=== PATIENT | female | born 1975 | race American Indian/Alaskan Native ===

== ENCOUNTER 2017-11-11 16:21 | Inpatient (IN) | payer OTHER ==
[2017-11-11] MEDS ORDERED: PITOCin/NS 20 UNIT/1000ML DRIP 20,000 MILLIUNITS/1,000 ML BAG IV ONE (16:23)
[2017-11-11] MEDS ORDERED: LACTATED RINGERS 1,000 ML ONE (16:26)
[2017-11-11] MEDS ORDERED: CYTOTEC ONE (16:32)
[2017-11-11] MEDS ORDERED: METHERGINE IM ONE (16:33)
--- NOTE | 2017-11-11 17:05 | Procedure Note ---
OB Delivery Note - Delivery Date of Delivery: 11/11/17 Surgeon: JIAN KENNEDY Estimated blood loss: 100cc - Vaginal Delivery presentation: vertex Delivery position: OA Intrapartum events: no care, gestational hypertension, precipitous labor- <3hr Delivery induction: none Delivery monitor: external FHT Route of delivery: Delivery placenta: adherent (delayed delivery of the placenta for over 1 hour. Ultrasound confirmed no morbidly adherent placenta) Delivery cord: 3 umbilical vessels Episiotomy: none Delivery laceration: none Anesthesia: none Delivery comments: Precipitous delivery of with unknown gestational age over intact perineum. Retained placenta encountered, ultrasound confirmed no morbidly adherent placenta. Placenta delivered spontaneously after 1 hour. - A at 1 minute: 8 at 5 minutes: 9 Infant Gender: Male (time of delivery was 16:38, infant weight 6 lbs. 1 oz. or 2765 g)
--- NOTE | 2017-11-11 17:07 | History and Physical Report ---
History of Present Illness Date of examination: 11/11/17 Date of admission: 11/11/17 16:27 Chief complaint: Precipitate Delivery of at unknown GA History of present illness: 42-year-old status post precipitous delivery of at unknown gestational age, patient had no care this . Past History Past Medical History: no pertinent history Past Surgical History: no surgical history L[employer] History: denies: chlamydia, HIV, syphilis Medications and Allergies Allergies Allergy/AdvReac Type Severity Reaction Status Date / Time No Known Allergies Allergy Unverified 11/11/17 16:55 Review of Systems Constitutional: no fever, no chills, no fatigue, no weakness, no malaise Cardiovascular: high blood pressure, no chest pain, no orthopnea, no syncope, no lightheadedness, no shortness of breath, no dyspnea on exertion, no paroxysmal nocturnal dyspnea Respiratory: no cough, no cough with sputum, no excessive sputum, no shortness of breath, no dyspnea on exertion Gastrointestinal: no abdominal pain, no nausea, no vomiting - Vital Signs Vital signs: Vital Signs Pulse BP 74 132/77 11/11/17 16:44 11/11/17 16:44 Temp Pulse Resp BP Pulse Ox 78 152/81 11/11/17 17:04 11/11/17 17:04 - Physical Exam Abdomen: Positive: normal appearance, soft. Negative: distention, tenderness, guarding, rigidity Genitourinary (Female): Positive: normal external genitalia Uterus: Positive: other (firm and well contracted). Negative: tender Extremities: Positive: normal Results All other labs normal. Assessment and Plan PPD#) s/p -stable P: -Continue routine care -Anticipate discharge in 24-48 hours - Patient Problems (1) (normal spontaneous vaginal delivery) Current Visit: Yes Status: Acute (2) No care in current Current Visit: Yes Status: Acute
[2017-11-11] MEDS ORDERED: TYLENOL PO PRN (18:06)
[2017-11-11] MEDS ORDERED: ZOFRAN IV PRN (18:06)
[2017-11-11] MEDS ORDERED: MILK OF MAGNESIA PO PRN (18:06)
[2017-11-11] MEDS ORDERED: TUCKS PAD TP PRN (18:06)
[2017-11-11] MEDS ORDERED: BENADRYL PO PRN (18:06)
[2017-11-11] MEDS ORDERED: LANSINOH TP PRN (18:06)
[2017-11-11] MEDS ORDERED: PHENERGAN PR PRN (18:06)
[2017-11-11] MEDS ORDERED: CYTOTEC PR ONE (18:06)
[2017-11-11] MEDS ORDERED: DULCOLAX PR PRN (18:06)
[2017-11-11] MEDS ORDERED: PHENERGAN PO PRN (18:06)
[2017-11-11] MEDS ORDERED: SODIUM CHLORIDE FLUSH SYRINGE 10 ML IV NR (19:00)
[2017-11-11] MEDS ORDERED: PITOCin/NS 20 UNIT/1000ML DRIP 20 UNITS/1,000 ML BAG IV SCH (19:00)
--- NOTE | 2017-11-11 19:32 | Ultrasound Report ---
FINAL REPORT EXAM: US OB LIMITED HISTORY: r/o accreta of placenta TECHNIQUE: Ultrasound obstetrical transabdominal PRIORS: None. FINDINGS: Ultrasound performed to evaluate placenta post delivery. Placenta present within the lower uterine segment. Technologist notes that on real-time imaging placenta moved toward the cervix and was delivered. IMPRESSION: Ultrasound of placenta post delivery as noted above
[2017-11-11 19:58] LABS: Amphetamine Screen,Urine PRESUMPTIVE NEGATIVE; Benzodiazepines Screen,Urine PRESUMPTIVE NEGATIVE; Cannabinoid Screen,Urine PRESUMPTIVE NEGATIVE; Cocaine Screen,Urine PRESUMPTIVE NEGATIVE; Methadone Screen,Urine PRESUMPTIVE NEGATIVE; Opiate Screen,Urine PRESUMPTIVE NEGATIVE
[2017-11-11 20:07] LABS: Bilirubin,Urine NEG (Negative); Blood,Urine LG (Negative); Color,Urine Red (Yellow); Urobilinogen,Urine < 2.0 mg/dL (<2.0)
[2017-11-11 20:08] LABS: RBC,Urine > 182.0 /HPF (0.0-6.0)
[2017-11-11 20:35] LABS: Basophils # (Auto) 0.1 K/mm3 (0.0-0.1); Basophils % (Auto) 0.4 % (0.0-1.8); Eosinophils # (Auto) 0.1 K/mm3 (0.0-0.4); Eosinophils % (Auto) 0.4 % (0.0-4.3); Hematocrit 30.7 % (30.3-42.9); Hemoglobin 9.5 gm/dl (10.1-14.3); Lymphocytes # (Auto) 2.3 K/mm3 (1.2-5.4); Lymphocytes % (Auto) 13.6 % (13.4-35.0); Mean Corpuscular HGB Conc 31 % (30-34); Monocytes # (Auto) 0.7 K/mm3 (0.0-0.8); Platelet Count 285 K/mm3 (140-440); Red Blood Count 4.49 M/mm3 (3.65-5.03); Red Cell Distribution Width 18.9 % (13.2-15.2)
[2017-11-11 20:37] LABS: Mean Corpuscular Hemoglobin 21 pg (28-32); Mean Corpuscular Volume 68 fl (79-97)
[2017-11-11 21:00] LABS: Hepatitis C Virus Antibody Indeterminate (NonReactive)
[2017-11-11 21:02] LABS: Rubella IgG Antibody Immune (Immune)
[2017-11-12 07:57] LABS: Hematocrit 26.3 % (30.3-42.9); Hemoglobin 8.5 gm/dl (10.1-14.3)
--- NOTE | 2017-11-12 10:16 | Progress Note ---
Assessment and Plan A: day 1 S/P . Hepatitis C antibody indeterminate. Anemia. P: Supplement with iron. Discussed with patient need for repeat Hep C antibody testing. Anticipate discharge tomorrow. Subjective - Subjective Date of service: 11/12/17 Principal diagnosis: day 1 S/P Interval history: day 1 S/P . Doing well. Patient reports small amount of lochia. Patient is voiding without difficulty and ambulating well. Tolerating a regular diet without nausea or vomiting. Patient denies headache, chest pain, cough, shortness of breath, leg pain, heavy bleeding, symptoms of depression, or any other symptoms. Patient is considering an IUD for contraception at 8 weeks . Patient denies any history of drug use or new sexual contacts or exposures. Hepatitis C antibody indeterminate. Discussed this result with patient and need to repeat the test in the future. Patient reports: appetite normal, voiding normally, pain well controlled, flatus , ambulating normally Dugger: doing well Objective - Vital Signs Latest vital signs: Vital Signs Temp Pulse Resp BP BP Pulse Ox 11/12/17 09:17 98.6 F 57 L 14 130/78 97 11/12/17 02:21 98.7 F 51 L 20 130/68 98 11/11/17 20:18 54 L 20 134/76 99 11/11/17 18:59 52 L 140/82 11/11/17 18:44 52 L 148/79 11/11/17 18:30 98.6 F 20 11/11/17 18:29 48 L 155/78 11/11/17 18:14 73 156/69 11/11/17 17:59 65 151/71 11/11/17 17:57 57 L 142/85 11/11/17 17:44 62 129/77 11/11/17 17:39 60 130/76 11/11/17 17:34 58 L 125/73 11/11/17 17:30 98.6 F 20 11/11/17 17:29 60 117/72 11/11/17 17:24 63 126/68 11/11/17 17:19 67 126/68 11/11/17 17:14 61 118/65 11/11/17 17:10 75 148/116 11/11/17 17:04 78 152/81 11/11/17 16:59 76 180/64 11/11/17 16:54 82 149/70 11/11/17 16:49 72 157/82 11/11/17 16:44 98.6 F 74 20 132/77 132/77 11/11/17 16:30 98.6 F 98 H 20 161/84 Intake and Output 11/11/17 11/12/17 11/12/17 23:59 07:59 15:59 Intake Total 540 240 Output Total 1000 400 800 Balance -460 -160 -800 Intake: Oral 540 240 Output: Urine 1000 400 800 Void 1000 400 800 Other: Total, Intake Amount 240 240 Total, Output Amount 600 400 800 # Voids Void 1 Weight 70.307 kg Estimated Blood Loss 100 - Exam Breasts: Present: deferred Cardiovascular: Present: Regular rate, Normal S1, Normal S2, No murmurs Lungs: Present: Clear to auscultation Abdomen: Present: normal appearance, soft, normal bowel sounds. Absent: distention, tenderness, guarding, rigidity Uterus: Present: normal, firm, fundal height below umbilicus. Absent: bogginess , tenderness Extremities: Present: normal. Absent: tenderness, edema - Labs Labs: Abnormal lab results 11/11/17 11/11/17 11/12/17 Range/Units 19:22 19:26 07:34 WBC 17.0 H (4.5-11.0) K/mm3 Hgb 9.5 L 8.5 L (10.1-14.3) gm/dl Hct 26.3 L (30.3-42.9) % MCV 68 L (79-97) fl MCH 21 L (28-32) pg RDW 18.9 H (13.2-15.2) % Seg Neutrophils % 81.6 H (40.0-70.0) % Seg Neutrophils # 13.9 H (1.8-7.7) K/mm3 Urine WBC (Auto) 7.0 H (0.0-6.0) /HPF
[2017-11-12] MEDS: MOTRIN PO SCH ×2 (11:00→18:57)
[2017-11-12] MEDS: FEOSOL PO SCH ×2 (11:01→22:24)
[2017-11-12] MEDS: COLACE PO SCH ×2 (11:02→22:24)
[2017-11-12] MEDS: PRENATAL VITAMIN PO SCH (11:02)
[2017-11-12] MEDS: SENOKOT S PO SCH (11:03)
[2017-11-12] MEDS ORDERED: BOOSTRIX IM ONE (18:06)
[2017-11-12] MEDS ORDERED: M-M-R II VACCINE SUB-Q ONE (18:06)
[2017-11-13] MEDS: MOTRIN PO SCH ×4 (00:15→18:52)
--- NOTE | 2017-11-13 09:44 | Progress Note ---
Assessment and Plan A: day 2 S/P . Anemia. P: Discharge patient home today. Discussed with patient discharge instructions and warning signs in detail. Advised patient to continue PNV and iron and the following Rx were called to [facility] pharmacy on [address]: Ferrous Sulfate 325 mg, #60, 1 po BID, 1 RF; Vitamin, #30, 1 po daily with 5 RF. Advised patient to avoid intercourse, avoid heavy lifting and housework, avoid driving. Advised patient to follow up with her [facility] in 6 weeks for exam and for retest of hepatitis C antibody. Patient voiced understanding of all instructions. Subjective - Subjective Date of service: 11/13/17 Principal diagnosis: day 2 S/P Interval history: day 2 S/P . Patient desires discharge today. Doing well. Patient reports small amount of lochia. Patient denies pain. Patient is voiding without difficulty and ambulating well. Tolerating a regular diet without nausea or vomiting. Patient denies headache, chest pain, cough, shortness of breath, leg pain, heavy bleeding, symptoms of depression, or any other symptoms. Patient is considering an IUD for contraception at 8 weeks . Patient denies any history of drug use or new sexual contacts or exposures. Hepatitis C antibody indeterminate. Discussed this result again with patient and need to repeat the test when she follows up in the office. She plans to follow up with Jerry. Patient reports: appetite normal, voiding normally, pain well controlled, flatus , ambulating normally David: doing well Objective - Vital Signs Latest vital signs: Vital Signs Temp Pulse Resp BP BP Pulse Ox 11/13/17 08:20 98.5 F 47 L 18 123/82 98 11/13/17 00:00 98 F 52 L 16 118/63 97 11/12/17 15:30 98.6 F 50 L 16 141/85 99 Intake and Output 11/12/17 11/13/17 11/13/17 23:59 07:59 15:59 Intake Total 240 360 Balance 240 360 Intake: Intake, Free Water 240 360 Other: # Voids Void 2 2 - Exam Breasts: Present: deferred Cardiovascular: Present: Regular rate, Normal S1, Normal S2, No murmurs Lungs: Present: Clear to auscultation Abdomen: Present: normal appearance, soft. Absent: distention, tenderness, guarding, rigidity Uterus: Present: normal, firm, fundal height below umbilicus. Absent: bogginess , tenderness Extremities: Present: normal. Absent: tenderness, edema
--- NOTE | 2017-11-13 09:52 | Discharge Summary ---
Providers - Providers Date of Admission: 11/11/17 16:27 Date of discharge: 11/13/17 Attending physician: JIAN KENNEDY Primary care physician: Dr. Kennedy Hospitalization Reason for admission: active labor Delivery: Episiotomy: none Laceration: none Other procedures: none complications: none Discharge diagnosis: IUP at term delivered [place] baby: male Pertinent studies: Labs Hospital course: Normal hospital course. Condition at discharge: Good Disposition: DC-01 TO HOME OR SELFCARE - Discharge Diagnoses (1) Term delivered Status: Acute Plan - Discharge Medications Prescriptions: Ibuprofen [Motrin 600 MG tab] 600 mg PO Q8H PRN #30 tablet PRN Reason: Pain Multivitamin with Iron [Multivitamins with Iron] 1 each PO DAILY #30 tablet - Provider Discharge Summary Activity: routine, no sex for 6 weeks, no heavy lifting 4 weeks, no strenuous exercise Diet: routine Instructions: routine Additional instructions: Continue iron supplement twice per day. Call your doctor immediately for: * Fever > 100.5 * Heavy vaginal bleeding ( >1 pad per hour) * Severe persistent headache * Shortness of breath * Reddened, hot, painful area to leg or breast - Follow up plan Follow up: PRIMARY CARE, [Primary Care Provider] - 6 Weeks
[2017-11-13] MEDS: FEOSOL PO SCH (09:55)
[2017-11-13] MEDS: PRENATAL VITAMIN PO SCH (09:55)
[2017-11-13] MEDS: SENOKOT S PO SCH (09:56)
[2017-11-13] MEDS: COLACE PO SCH (09:56)
[2017-11-13 17:35] VITALS: BP 128/68
== END 2017-11-13 20:00 | disposition home or self-care (01) | DRG 774 ==
LOC: TRG 16:21 → LD 16:27 → OB 20:09
PROVIDERS: ADMIT Obstetrics & Gynecology Gynecology; ATTEND Obstetrics & Gynecology Gynecology
PROC: 10E0XZZ Delivery of Products of Conception, External Approach (ICD-10-PCS; principal; 2017-11-11)
DX: O13.4 Gestational [pregnancy-induced] hypertension without significant proteinuria, complicating childbirth (principal); O98.42 Viral hepatitis complicating childbirth; B19.20 Unspecified viral hepatitis C without hepatic coma; O62.3 Precipitate labor; Z37.0 Single live birth; Z3A.00 Weeks of gestation of pregnancy not specified; D64.9 Anemia, unspecified; O90.81 Anemia of the puerperium; O09.523 Supervision of elderly multigravida, third trimester
CPT/HCPCS: 36415; 59200; 76815; 80307; 81001; 85014; 85018; 85025; 86592; 86706; 86762; 86803; 86850; 86900; 86901; 87806; J2210; J2590; J7120